=== PATIENT | male | born 1980 | race Caucasian/White ===

== ENCOUNTER 2024-10-20 12:39 | Emergency (ER) | payer OTHER, SELFPAY ==
[2024-10-20] MEDS ORDERED: DIAZEPAM 5 MG TABLET ONE (13:18)
[2024-10-20] MEDS ORDERED: HYDROCODONE/APAP 5/325 MG TAB ONE (13:18)
--- NOTE | 2024-10-20 13:45 | RAD REPORT ---
EXAM: Esophagram HISTORY: ABD PAIN COMPARISON: EXAMINATION: CT ABDOMEN AND PELVIS with stone protocol WITHOUT CONTRAST CLINICAL INDICATION: Male, 44 years old.ABD PAIN TECHNIQUE: CT abdomen and pelvis was performed using a stone protocol, without IV contrast, as per de partment protocol. Axial, sagittal and coronal reconstructions were obtained. One or more of the following dose reduction techniques were used: Automated exposure control, adjustment of the mA and/o r kV according to the patient size, and/or iterative reconstruction. Unless otherwise specified, incidental findings do not require dedicated imaging follow-up. [id number]. IV CONTRAST: Not administered. COMPARISON: None FINDINGS: The lack of intravenous contrast limits the sensitivity of this exam for evaluation of solid visceral organs, vascular structures, and retroperitoneum. LOWER CHEST: No acute process identified.No significant pericardial effusion. Mild circumferential th ickening of the distal esophagus which could reflect esophagitis. UPPER GI: No significant abnormality. LIVER: Hepatic steatosis, but otherwise unremarkable. GALLBLADDER/BILE DUCTS: No biliary ductal dilatation.? PANCREAS: No mass, ductal dilation, or ben-pancreatic fluid. SPLEEN: Unremarkable. ADRENALS: No adrenal masses. KIDNEYS AND URETERS: No hydronephrosis.Within the limitations of a noncontrast CT, no suspicious arianne l lesions. No urinary tract calculi. ABDOMINAL AORTA AND OTHER VESSELS: Normal caliber aorta and IVC. PERITONEUM: No abnormal free fluid. No free air. LYMPH NODES: No pathologic lymphadenopathy. ABDOMINAL WALL: Unremarkable SMALL BOWEL/COLON: Small bowel has normal course and caliber. No colonic wall thickening or pericolon ic inflammatory changes.Normal appendix. URINARY BLADDER: Underdistended but grossly unremarkable. REPRODUCTIVE ORGANS: No pathologic process. MUSCULOSKELETAL: ADDITIONAL FINDINGS: None. IMPRESSION: No acute or significant abnormalities in the abdomen or pelvis, with evaluation limited by lack of IV contrast. Hepatic steatosis.
[2024-10-20 15:16] LABS: Calcium Oxalate Crystals- Ur Few /HPF (None Seen); Specific Gravity > 1.030 (1.005-1.030); Sqamous Epithelial None Seen /HPF (None Seen); Urine Bacteria <20 /HPF (<20); Urine Bilirubin NEGATIVE (Negative); Urine Blood 1+ (Negative); Urine Clarity Turbid (Clear); Urine Color Yellow (Yellow); Urine Culture Reflex Order NOT NEEDED; Urine Glucose NEGATIVE (Negative); Urine Ketones NEGATIVE (Negative); Urine Microscopic Reflex YN ORDER UMIC; Urine Mucus 4+ /HPF (None Seen); Urine Nitrite NEGATIVE (Negative); Urine Protein 1+ (Negative); Urine Urobilinogen 1+ (Normal); Urine WBC <5 /HPF (<5); Urine WBC Clump Rare /HPF (None Seen); Urine Yeast (Budding) Trace /HPF (None Seen)
--- NOTE | 2024-10-20 15:34 | ER ---
Nurse's Notes [facility] Name: Sarmad Eric Jr Age: 44 yrs Sex: Male : 1980 Arrival Date: 10/20/2024 Time: 12:39 Bed 15 Private MD: Diagnosis: Abdominal pain, Generalized-right lateral Presentation: 10/20 13:11 Chief complaint: RUQ pain x 3 weeks. Coronavirus screen: At this time, the client does hb not indicate any symptoms associated with coronavirus-19. Ebola Screen: No symptoms or risks identified at this time. Initial Sepsis Screen: Does the patient meet any 2 criteria? No. Patient's initial sepsis screen is negative. Does the patient have a suspected source of infection? No. Patient's initial sepsis screen is negative. Risk Assessment: Do you want to hurt yourself or someone else? Patient reports no desire to harm self or others. Onset of symptoms was September 29, 2024. 13:11 Method Of Arrival: Ambulatory hb 13:11 Acuity: TEOFILO 3 hb Historical: - Allergies: 13:14 Iodine; hb - Home Meds: 13:14 None [Active]; hb - PMHx: 13:14 None; hb - PSHx: 13:14 Left Ankle; Right Leg; Hernia; hb - Immunization history:: Adult Immunizations up to date. - Infectious Disease History:: Denies. - Social history:: Smoking status: Patient reports use of chewing tobacco. Screenin:30 [facility] ED Fall Risk Assessment (Adult) History of falling in the last 3 months, kj2 including since admission No falls in past 3 months (0 pts) Confusion or Disorientation No (0 pts) Intoxicated or Sedated No (0 pts) Impaired Gait No (0 pts) Mobility Assist Device Used No (0 pt) Altered Elimination No (0 pt) Score/Fall Risk Level 0 - 2 = Low Risk Maintained a safe environment, Hourly rounding (assess needs \T\ fall precautionary measures) done. Abuse screen: Denies threats or abuse. Denies injuries from another. Nutritional screening: No deficits noted. Tuberculosis screening: No symptoms or risk factors identified. Assessment: 13:30 General: Appears in no apparent distress. uncomfortable, Behavior is calm, cooperative. kj2 Pain: Complains of pain in right upper quadrant and anterior aspect of right lateral abdomen Pain currently is 5 out of 10 on a pain scale. Neuro: Level of Consciousness is awake, alert, obeys commands, Oriented to person, place, time, situation. Cardiovascular: Patient's skin is warm and dry. Respiratory: Airway is patent Respiratory effort is unlabored. GI: Reports upper abdominal pain. : No signs and/or symptoms were reported regarding the genitourinary system. 14:38 Reassessment: Patient appears in no apparent distress at this time. Patient and/or kj2 family updated on plan of care and expected duration. Pain level reassessed. Patient is alert, oriented x 3, equal unlabored respirations, skin warm/dry/pink. 15:30 Reassessment: Patient appears in no apparent distress at this time. Patient and/or kj2 family updated on plan of care and expected duration. Pain level reassessed. Patient is alert, oriented x 3, equal unlabored respirations, skin warm/dry/pink. Vital Signs: 13:11 BP 139 / 99; Pulse 97; Resp 18; Temp 98.4(TE); Pulse Ox 97% on R/A; Weight 127.01 kg; hb Height 5 ft. 10 in. ; Pain 8/10; 14:38 BP 129 / 95; Pulse 90; Resp 20; Pulse Ox 100% on R/A; kj2 15:30 BP 128 / 86; Pulse 90; Resp 20; Temp 98.1; Pulse Ox 100% on R/A; kj2 13:11 Body Mass Index 40.18 (127.01 kg, 177.8 cm) hb 13:11 Pain Scale: Adult hb ED Course: 12:44 Patient arrived in ED. im 12:48 Amrita Gacria FNP-C is PHCP. kb 12:48 Tony Bourne MD is Attending Physician. kb 13:14 Triage completed. hb 13:15 Arm band placed on. hb 13:30 Patient has correct armband on for positive identification. Bed in low position. Call kj2 light in reach. Adult w/ patient. Provided Education on: call light. 13:32 CT Stone Protocol In Process Unspecified. EDMS 14:24 Marilee Rangel, RN is Primary Nurse. kj2 14:36 No provider procedures requiring assistance completed. kj2 15:52 Patient did not have IV access during this emergency room visit. kj2 Administered Medications: 13:22 Drug: HYDROcodone-acetaminophen PO 5 mg-325 mg 1 tabs PO once Route: PO; hb 14:37 Follow up: Response: No adverse reaction kj2 13:22 Drug: Diazepam PO 5 mg PO once Route: PO; hb 14:37 Follow up: Response: No adverse reaction kj2 Medication: 14:37 VIS not applicable for this client. kj2 Outcome: 15:34 Discharge ordered by MD. greer 15:51 Discharged to home ambulatory, kj2 15:51 Condition: stable 15:51 Discharge instructions given to patient, Instructed on discharge instructions, Demonstrated understanding of instructions, follow-up care, medications, Prescriptions given X 1, 15:55 Patient left the ED. kj2 Signatures: Dispatcher [employer] EDAmrita Walsh, YULIA DAVILA-Priyanka Boles, RN RN Elsie Sevilla Krystal, JALEN RN kj2
--- NOTE | 2024-10-20 15:34 | EDPHYS ---
Physician Documentation [facility] Name: Sarmad Eric Jr Age: 44 yrs Sex: Male : 1980 Arrival Date: 10/20/2024 Time: 12:39 Bed 15 Private MD: ED Physician Tony Bourne HPI: 10/20 13:16 This 44 yrs old Male presents to ER via Ambulatory with complaints of Rib pain right kb side. 13:16 Pt is a 44 year old male who presents for right lateral abd pain that started 3 weeks kb ago. States [place] the [place] and the pain started then. Denies fall, but said he could have twisted wrong. States the pain hasn't improved. Denies fever, n/v/d, urinary symptoms. Pain aggravated by movement and palpation. . Historical: - Allergies: 13:14 Iodine; hb - Home Meds: 13:14 None [Active]; hb - PMHx: 13:14 None; hb - PSHx: 13:14 Left Ankle; Right Leg; Hernia; hb - Immunization history:: Adult Immunizations up to date. - Infectious Disease History:: Denies. - Social history:: Smoking status: Patient reports use of chewing tobacco. ROS: 13:16 Constitutional: As per HPI kb Exam: 13:16 Constitutional: This is a well developed, well nourished patient who is awake, alert, kb and in no acute distress. Head/Face: Normocephalic, atraumatic. ENT: Moist Mucous membranes Cardiovascular: Regular rate Respiratory: Respirations even and unlabored. No increased work of breathing. Talking in full sentences Skin: Warm, dry with normal turgor. Normal color. MS/ Extremity: Pulses equal, no cyanosis. Neurovascular intact. Full, normal range of motion. Neuro: Awake and alert, GCS 15, oriented to person, place, time, and situation. 13:16 Abdomen/GI: Inspection: abdomen appears normal, Bowel sounds: normal, Palpation: soft, in all quadrants, moderate abdominal tenderness, in the anterior aspect of right lateral abdomen and right upper quadrant, Vital Signs: 13:11 BP 139 / 99; Pulse 97; Resp 18; Temp 98.4(TE); Pulse Ox 97% on R/A; Weight 127.01 kg; hb Height 5 ft. 10 in. ; Pain 8/10; 14:38 BP 129 / 95; Pulse 90; Resp 20; Pulse Ox 100% on R/A; kj2 15:30 BP 128 / 86; Pulse 90; Resp 20; Temp 98.1; Pulse Ox 100% on R/A; kj2 13:11 Body Mass Index 40.18 (127.01 kg, 177.8 cm) hb 13:11 Pain Scale: Adult hb MDM: 12:48 Medical Screening Exam initiated kb 13:18 Data reviewed: vital signs, nurses notes. kb 15:28 ED course: Discussed CT results with pt and told him we were still waiting on kb urinalysis. Pt requested to see the Dr prior to discharge. Dr Bourne at bedside now. . 16:50 Differential diagnosis: cholelithiasis, pancreatitis, muscle strain, rib fracture, kb kidney stone. Test considered but Not performed: Labs: cbc, cmp and lipase considered but pt has had ongoing symptoms for 3 weeks without n/v/d, fever. Pt has normal vital signs and tolerating po intake. Counseling: I had a detailed discussion with the patient and/or guardian regarding the historical points, exam findings, and any diagnostic results supporting the discharge/admit diagnosis, lab results, radiology results, the need for outpatient follow up, a family practitioner, to return to the emergency department if symptoms worsen or persist or if there are any questions or concerns that arise at home. 10/20 13:50 Order name: Urinalysis w/ reflexes; Complete Time: 15:17 kb 10/20 13:15 Order name: CT Stone Protocol; Complete Time: 13:50 kb Administered Medications: 13:22 Drug: HYDROcodone-acetaminophen PO 5 mg-325 mg 1 tabs PO once Route: PO; hb 14:37 Follow up: Response: No adverse reaction kj2 13:22 Drug: Diazepam PO 5 mg PO once Route: PO; hb 14:37 Follow up: Response: No adverse reaction kj2 Disposition: 15:33 Co-signature as Attending Physician, Tony Bourne MD I reviewed the patient's care rt provided by Advanced Practice Provider \T\ agree w/ the diagnosis \T\ care plan. I personally saw the pt \T\ performed a substantive portion of the visit, incldng all aspects of the (History/Exam/Medical Decision Making). I personally discussed with the patient the labs, informed him of trace blood, do not believe that this is emergent. Discussed negative findings of CT scan with the patient. Patient states that has been medicating with alcohol, he is asking for oxycodone by name. I do not believe that opiate medications are indicated at this time. He is in no acute distress. Informed the patient that opiates are not indicated, will give patient Toradol.. Disposition Summary: 10/20/24 15:34 Discharge Ordered Notes: Location: Home kb Condition: Stable kb Diagnosis - Abdominal pain, Generalized - right lateral kb Followup: kb - With: Emergency Department - When: As needed - Reason: Worsening of condition Followup: kb - With: Private Physician - When: 2 - 3 days - Reason: Recheck today's complaints, Continuance of care, Re-evaluation by your physician Discharge Instructions: - Discharge Summary Sheet kb - Musculoskeletal Pain kb - Abdominal Pain, Adult, [id number] kb Forms: - Medication Reconciliation Form kb - Antibiotic Education kb - Prescription Opioid Use kb - Patient Portal Instructions kb - Leadership Thank You Letter kb Prescriptions: - ketorolac 10 mg Oral tablet - take 1 tablet ORAL route every 12 hours As needed; 15 tablet; Refills: 0, kb Product Selection Permitted Signatures: Dispatcher [employer] Amrita Grande, YULIA PHILIPP-Priyanka Boles, RN RN Tony Bourne MD MD rt Marilee Rangel RN kj2 Corrections: (The following items were deleted from the chart) 13:51 13:51 Urinalysis+U.LAB.BRZ ordered. EDCT EDMS
[2024-10-20 17:52] VITALS: O2SAT 100
[2024-10-20 17:53] VITALS: BP 128/86; TEMP 98.1
== END 2024-10-20 15:55 | disposition home or self-care (01) ==
LOC: ER 12:39
DX: R10.84 Generalized abdominal pain (principal); R10.31 Right lower quadrant pain
CPT/HCPCS: 74176; 76377; 81001; 99283